=== PATIENT | male | born 1935 | race African-American/Black ===

== ENCOUNTER 2020-03-21 10:50 | Inpatient (IN) | payer MEDICARE ==
[2020-03-21] MEDS ORDERED: SODIUM CHLORIDE 0.9% 500 ML 500 ML IV ONE (11:02)
--- NOTE | 2020-03-21 11:14 | Emergency Department Report ---
- General Chief complaint: Weakness Stated complaint: YENNIFER PUI?: Yes Time Seen by Provider: 03/21/20 11:02 Source: patient, EMS Mode of arrival: Stretcher Limitations: Language Barrier - History of Present Illness Initial comments: This is an 84 yo male with hx of CVA, paroxysmal atrial fibrillation, diabetes mellitus, hypertension who presents with shortness of breath, diarrhea, generalized weakness. Patient was recently diagnosed with COVID-19 infection. He arrived via EMS. MD Complaint: generalized weakness -: Gradual, days(s) (Several days) Location: generalized Severity: moderate Consistency: constant Improves with: none Worsens with: none Context: recent illness (Recent COVID-19 positive test) - Related Data Home Medications Medication Instructions Recorded Confirmed Last Taken Metformin HCl [Glucophage] 850 mg PO BID 04/16/15 12/07/15 12/06/15 19:00 850 mg Sotalol HCl [Sotalol] 120 mg PO BID 04/16/15 12/07/15 12/06/15 120 mg Albuterol Mdi (or & Nicu Only) 2 puff INHALATION PRN PRN 12/07/15 12/07/15 12/06/15 [ProAir HFA Inhaler] 2 puffs Aspirin EC [Halfprin EC] 81 mg PO QDAY 12/07/15 12/07/15 12/06/15 81 mg Olmesartan/Hydrochlorothiazide 1 tab PO DAILY 12/07/15 12/07/15 12/06/15 [Benicar HCT 40-12.5 mg] 1 tab Previous Rx's Medication Instructions Recorded Last Taken Type AtorvaSTATin [Lipitor] 40 mg PO QHS #30 tablet 04/20/15 12/06/15 Rx 40 mg Dabigatran [Pradaxa] 150 mg PO BID #60 capsule 04/20/15 12/06/15 Rx 150 mg Famotidine [Pepcid] 40 mg PO DAILY #40 tablet 04/20/15 12/06/15 Rx 40 mg Losartan [Cozaar] 50 mg PO QDAY #30 tablet 04/20/15 12/06/15 Rx 50 mg amLODIPine 5 mg PO QDAY #30 tablet 04/20/15 12/06/15 Rx 5 mg Allergies Allergy/AdvReac Type Severity Reaction Status Date / Time No Known Allergies Allergy Verified 12/07/15 06:54 ED Review of Systems ROS: Stated complaint: YENNIFER Other details as noted in HPI Comment: All other systems reviewed and negative Constitutional: malaise Respiratory: cough, shortness of breath Gastrointestinal: diarrhea ED Past Medical Hx - Past Medical History Previous Medical History?: Yes Hx Hypertension: Yes Hx Diabetes: Yes (2007) Hx Arthritis: Yes Hx HIV: No - Social History Smoking Status: Former Smoker - Medications Home Medications: Home Medications Medication Instructions Recorded Confirmed Last Taken Type Metformin HCl [Glucophage] 850 mg PO BID 04/16/15 12/07/15 12/06/15 19:00 History 850 mg Sotalol HCl [Sotalol] 120 mg PO BID 04/16/15 12/07/15 12/06/15 History 120 mg AtorvaSTATin [Lipitor] 40 mg PO QHS #30 tablet 04/20/15 12/07/15 12/06/15 Rx 40 mg Dabigatran [Pradaxa] 150 mg PO BID #60 capsule 04/20/15 12/07/15 12/06/15 Rx 150 mg Famotidine [Pepcid] 40 mg PO DAILY #40 tablet 04/20/15 12/07/15 12/06/15 Rx 40 mg Losartan [Cozaar] 50 mg PO QDAY #30 tablet 04/20/15 12/07/15 12/06/15 Rx 50 mg amLODIPine 5 mg PO QDAY #30 tablet 04/20/15 12/07/15 12/06/15 Rx 5 mg Albuterol Mdi (or & Nicu Only) 2 puff INHALATION PRN PRN 12/07/15 12/07/15 12/06/15 History [ProAir HFA Inhaler] 2 puffs Aspirin EC [Halfprin EC] 81 mg PO QDAY 12/07/15 12/07/15 12/06/15 History 81 mg Olmesartan/Hydrochlorothiazide 1 tab PO DAILY 12/07/15 12/07/15 12/06/15 History [Benicar HCT 40-12.5 mg] 1 tab ED Physical Exam - General Limitations: Language Barrier General appearance: alert, in no apparent distress - Head Head exam: Present: atraumatic, normocephalic - Eye Eye exam: Present: normal appearance - ENT ENT exam: Present: mucous membranes moist - Neck Neck exam: Present: normal inspection, full ROM - Respiratory Respiratory exam: Present: normal lung sounds bilaterally. Absent: respiratory distress, wheezes, rales, rhonchi - Cardiovascular Cardiovascular Exam: Present: regular rate, tachycardia, normal heart sounds. Absent: systolic murmur, diastolic murmur, rubs, gallop - GI/Abdominal GI/Abdominal exam: Present: soft, normal bowel sounds. Absent: distended, tenderness, guarding, rebound - Rectal Rectal exam: Present: deferred - Extremities Exam Extremities exam: Present: normal inspection - Neurological Exam Neurological exam: Present: alert, oriented X3 - Psychiatric Psychiatric exam: Present: normal affect, normal mood - Skin Skin exam: Present: warm, dry, intact, normal color. Absent: rash ED Course Vital Signs 03/21/20 03/21/20 03/21/20 10:55 11:04 11:15 Temperature 98 F Pulse Rate 102 H 108 H Respiratory 22 18 20 Rate Blood Pressure 111/71 O2 Sat by Pulse 98 95 Oximetry 03/21/20 03/21/20 03/21/20 11:30 11:45 12:00 Temperature Pulse Rate 103 H 109 H 115 H Respiratory 23 22 22 Rate Blood Pressure 107/79 116/86 116/86 O2 Sat by Pulse 96 97 96 Oximetry 03/21/20 03/21/20 03/21/20 12:15 12:30 12:45 Temperature Pulse Rate 97 H 98 H 104 H Respiratory 22 21 25 H Rate Blood Pressure 122/73 122/82 120/79 O2 Sat by Pulse 96 96 96 Oximetry 03/21/20 03/21/20 03/21/20 13:00 13:30 14:00 Temperature Pulse Rate 106 H 101 H Respiratory 19 22 Rate Blood Pressure 113/79 122/83 106/66 O2 Sat by Pulse 97 96 94 Oximetry 03/21/20 14:31 Temperature Pulse Rate Respiratory Rate Blood Pressure 129/86 O2 Sat by Pulse 99 Oximetry ED Medical Decision Making - Lab Data Result diagrams: 03/21/20 11:59 03/21/20 11:59 - Radiology Data Radiology results: report reviewed, image reviewed - Medical Decision Making Mr. Jones presents with shortness of breath, diarrhea, malaise attributed to COVID 19 Hypovolemic hyponatremia due to diarrhea GI loss and thiazide diuretic use with need conservative hydration and supprotive care with multiple co--morbidities I personally reviewed chest radiograph. I suspect bibasilar pneumonia i nfiltrates evident at both lung bases. No hypoxia currently No respiratory distress. admitted to hospitalist service for further treatment Critical care attestation.: If time is entered above; I have spent that time in minutes in the direct care of this critically ill patient, excluding procedure time. ED Disposition Clinical Impression: COVID-19, Pneumonia due to COVID-19 virus, Dehydration, Acute hyponatremia Disposition: OP ADMIT IP TO THIS HOSP Is pt being admited?: Yes Does the pt Need Aspirin: No Condition: Stable
--- NOTE | 2020-03-21 11:44 | XRay Report ---
CHEST 1 VIEW 03/21/2020 11:09 AM INDICATION / CLINICAL INFORMATION: Weakness. COMPARISON: 04/16/2015 FINDINGS: SUPPORT DEVICES: None. HEART / MEDIASTINUM: No significant abnormality. LUNGS / PLEURA: There are mild bibasilar opacities. No pneumothorax. ADDITIONAL FINDINGS: No significant additional findings. IMPRESSION: 1. Given the low lung volumes, mild bibasilar opacities are most likely atelectatic in etiology. Signer Name: Graeme Cohen MD Signed: 03/21/2020 11:39 AM Workstation Name: [id number]
[2020-03-21 13:27] LABS: Alanine Aminotransferase 19 units/L (7-56); Albumin 3.3 g/dL (3.9-5); BUN/Creatinine Ratio 18; Blood Urea Nitrogen 18 mg/dL (9-20); Calcium 8.5 mg/dL (8.4-10.2); Hemolysis Index 32
[2020-03-21 13:43] LABS: Hematocrit 44.6 % (35.5-45.6); Mean Corpuscular HGB Conc 34 % (32-34); Mean Corpuscular Volume 88 fl (84-94); Platelet Count 219 K/mm3 (140-440); Red Blood Count 5.09 M/mm3 (3.65-5.03); Red Cell Distribution Width 13.3 % (13.2-15.2)
[2020-03-21 13:44] LABS: Basophils % (Auto) 0.5 % (0.0-1.8); Eosinophils % (Auto) 0.2 % (0.0-4.3); Lymphocytes # (Auto) 0.6 K/mm3 (1.2-5.4); Lymphocytes % (Auto) 11.5 % (13.4-35.0); Monocytes % (Auto) 10.3 % (0.0-7.3)
[2020-03-21 13:45] LABS: Monocytes # (Auto) 0.5 K/mm3 (0.0-0.8)
--- NOTE | 2020-03-21 22:41 | History and Physical Report ---
History of Present Illness Date of examination: 03/21/20 Date of admission: 03/21/20 15:22 Chief complaint: Shortness of breath for 1 day Diarrhea for 1 day Generalized weakness for 1 day History of present illness: 84-year-old male with history of hypertension cerebrovascular accident paroxysmal atrial fibrillation comes in for shortness of breath and diarrhea and generalized weakness. Patient symptoms are getting worse hence his visit to the emergency room. Patient was apparently diagnosed with coronavirus 19 infection recently. Details of which are not available. No fever no chills. Loose watery stools for 3 to 4 days. No body aches. - Past Medical History Previous Medical History?: Yes Hx Hypertension: Yes Hx Diabetes: Yes (2007) Hx Arthritis: Yes Hx HIV: No - Social History Smoking Status: Former Smoker - Medications Home Medications: Home Medications Medication Instructions Recorded Confirmed Last Taken Type Metformin HCl [Glucophage] 850 mg PO BID 04/16/15 12/07/15 12/06/15 19:00 History 850 mg Sotalol HCl [Sotalol] 120 mg PO BID 04/16/15 12/07/15 12/06/15 History 120 mg AtorvaSTATin [Lipitor] 40 mg PO QHS #30 tablet 04/20/15 12/07/15 12/06/15 Rx 40 mg Dabigatran [Pradaxa] 150 mg PO BID #60 capsule 04/20/15 12/07/15 12/06/15 Rx 150 mg Famotidine [Pepcid] 40 mg PO DAILY #40 tablet 04/20/15 12/07/15 12/06/15 Rx 40 mg Losartan [Cozaar] 50 mg PO QDAY #30 tablet 04/20/15 12/07/15 12/06/15 Rx 50 mg amLODIPine 5 mg PO QDAY #30 tablet 04/20/15 12/07/15 12/06/15 Rx 5 mg Albuterol Mdi (or & Nicu Only) 2 puff INHALATION PRN PRN 12/07/15 12/07/1512/05 History [ProAir HFA Inhaler] 2 puffs Aspirin EC [Halfprin EC] 81 mg PO QDAY 12/07/15 12/07/15 12/06/15 History 81 mg Olmesartan/Hydrochlorothiazide 1 tab PO DAILY 12/07/15 12/07/15 12/06/15 History [Benicar HCT 40-12.5 mg] 1 tab Review of Systems ROS: Constitutional no weight loss or weight gain no fever or chills HEENT no sore throat no post nasal drip no diplopia Neck no neck stiffness no lymph gland enlargement Chest and lungs shortness of breath present CVS no chest pain no diaphoresis no palpitations GI diarrhea present Genitourinary system no dysuria no flank pain Musculoskeletal system no muscle pains no joint pains 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 Skin no rash no itching Psychiatric no depression no homicidal or suicidal tendencies Hematologic no lymphedema or bruising Endocrine no polydipsia no polyuria no cold intolerance no heat intolerance Medications and Allergies Allergies Allergy/AdvReac Type Severity Reaction Status Date / Time No Known Allergies Allergy Verified 12/07/15 06:54 Home Medications Medication Instructions Recorded Confirmed Last Taken Type Metformin HCl [Glucophage] 750 mg PO BID 04/16/15 03/21/20 03/20/20 History AtorvaSTATin [Lipitor] 40 mg PO QHS #30 tablet 04/20/15 03/21/20 03/20/20 Rx Dabigatran [Pradaxa] 150 mg PO BID #60 capsule 04/20/15 03/21/20 03/21/20 Rx Olmesartan/Hydrochlorothiazide 1 tab PO DAILY 12/07/15 03/21/20 03/21/20 History [Benicar HCT 40-12.5 mg] Famotidine [Pepcid] 40 mg PO HS 03/21/20 03/21/20 03/20/20 History Finasteride [Proscar] 5 mg PO QHS 03/21/20 03/21/20 03/20/20 History Glimepiride [Amaryl] 2 mg PO QAM 03/21/20 03/21/20 03/21/20 History Metoprolol Succinate [Toprol Xl] 100 mg PO QHS 03/21/20 03/21/20 03/20/20 History Sitagliptin Phosphate [Januvia] 25 mg PO QAM 03/21/20 03/21/20 03/21/20 History Tamsulosin [Flomax] 0.4 mg PO DAILY 03/21/20 03/21/20 03/20/20 History Exam - Constitutional Vitals: Temp Pulse Resp BP Pulse Ox 98.7 F 91 H 18 136/95 96 03/21/20 17:30 03/21/20 17:30 03/21/20 17:30 03/21/20 17:30 03/21/20 17:30 General appearance: Present: mild distress, well-nourished - EENT Eyes: Present: PERRL ENT: hearing intact, clear oral mucosa - Neck Neck: Present: supple, normal ROM - Respiratory Respiratory effort: normal Respiratory: bilateral: CTA, rhonchi (Scattered) - Cardiovascular Heart rate: 108 Rhythm: regular Heart Sounds: Present: S1 & S2. Absent: rub, click - Extremities Extremities: pulses symmetrical, No edema Peripheral Pulses: within normal limits - Abdominal General gastrointestinal: Present: soft, non-tender, non-distended, normal bowel sounds Male genitourinary: Present: normal - Integumentary Integumentary: Present: clear, warm, dry - Musculoskeletal Musculoskeletal: gait normal, strength equal bilaterally - Psychiatric Psychiatric: appropriate mood/affect, intact judgment & insight - Neurologic Neurologic: CNII-XII intact, moves all extremities - Allied Health Allied health notes reviewed: nursing, case management HEART Score - HEART Score Troponin: Troponin T < 0.010 ng/mL (0.00-0.029) 03/21/20 11:59 Results - Labs CBC & Chem 7: 03/22/20 03:53 03/22/20 03:53 Labs: Laboratory Last Values WBC 5.2 K/mm3 (4.5-11.0) 03/21/20 11:59 RBC 5.09 M/mm3 (3.65-5.03) H 03/21/20 11:59 Hgb 15.0 gm/dl (11.8-15.2) 03/21/20 11:59 Hct 44.6 % (35.5-45.6) 03/21/20 11:59 MCV 88 fl (84-94) 03/21/20 11:59 MCH 30 pg (28-32) 03/21/20 11:59 MCHC 34 % (32-34) 03/21/20 11:59 RDW 13.3 % (13.2-15.2) 03/21/20 11:59 Plt Count 219 K/mm3 (140-440) 03/21/20 11:59 Lymph % (Auto) 11.5 % (13.4-35.0) L 03/21/20 11:59 [place] % (Auto) 10.3 % (0.0-7.3) H 03/21/20 11:59 Eos % (Auto) 0.2 % (0.0-4.3) 03/21/20 11:59 Baso % (Auto) 0.5 % (0.0-1.8) 03/21/20 11:59 Lymph # 0.6 K/mm3 (1.2-5.4) L 03/21/20 11:59 [place] # 0.5 K/mm3 (0.0-0.8) 03/21/20 11:59 Eos # 0.0 K/mm3 (0.0-0.4) 03/21/20 11:59 Baso # 0.0 K/mm3 (0.0-0.1) 03/21/20 11:59 Seg Neutrophils % 77.5 % (40.0-70.0) H 03/21/20 11:59 Seg Neutrophils # 4.0 K/mm3 (1.8-7.7) 03/21/20 11:59 D-Dimer 212.99 ng/mlDDU (0-234) 03/21/20 11:59 Sodium 128 mmol/L (137-145) L 03/21/20 11:59 Potassium 4.1 mmol/L (3.6-5.0) 03/21/20 11:59 Chloride 90.5 mmol/L (98-107) L 03/21/20 11:59 Carbon Dioxide 24 mmol/L (22-30) 03/21/20 11:59 Anion Gap 18 mmol/L 03/21/20 11:59 BUN 18 mg/dL (9-20) 03/21/20 11:59 Creatinine 1.0 mg/dL (0.8-1.3) 03/21/20 11:59 Estimated GFR > 60 ml/min 03/21/20 11:59 BUN/Creatinine Ratio 18 % 03/21/20 11:59 Glucose 204 mg/dL (75-100) H 03/21/20 11:59 Calcium 8.5 mg/dL (8.4-10.2) 03/21/20 11:59 Total Bilirubin 0.70 mg/dL (0.1-1.2) 03/21/20 11:59 AST 32 units/L (5-40) 03/21/20 11:59 ALT 19 units/L (7-56) 03/21/20 11:59 Alkaline Phosphatase 39 units/L (35-129) 03/21/20 11:59 Lactate Dehydrogenase 377 units/L (91-180) H 03/21/20 11:59 Troponin T < 0.010 ng/mL (0.00-0.029) 03/21/20 11:59 C-Reactive Protein 4.20 mg/dL (0.00-1.30) H 03/21/20 11:59 Total Protein 6.9 g/dL (6.3-8.2) 03/21/20 11:59 Albumin 3.3 g/dL (3.9-5) L 03/21/20 11:59 Albumin/Globulin Ratio 0.9 % 03/21/20 11:59 Procalcitonin < 0.05 ng/mL (<0.15) 03/21/20 11:59 Short CBC 03/21/20 03/22/20 Range/Units 11:59 03:53 WBC 5.2 5.3 (4.5-11.0) K/mm3 Hgb 15.0 15.2 (11.8-15.2) gm/dl Hct 44.6 44.4 (35.5-45.6) % Plt Count 219 230 (140-440) K/mm3 BMP 03/21/20 03/22/20 11:59 03:53 Sodium 128 L 128 L Potassium 4.1 4.7 Chloride 90.5 L 90.3 L Carbon Dioxide 24 25 BUN 18 15 Creatinine 1.0 1.0 Glucose 204 H 242 H Calcium 8.5 8.5 Cardiac Enzymes 03/21/20 Range/Units 11:59 Troponin T < 0.010 (0.00-0.029) ng/mL Liver Function 03/21/20 03/22/20 Range/Units 11:59 03:53 Total Bilirubin 0.70 0.80 (0.1-1.2) mg/dL AST 32 26 (5-40) units/L ALT 19 19 (7-56) units/L Alkaline Phosphatase 39 43 (35-129) units/L Albumin 3.3 L 3.3 L (3.9-5) g/dL - Imaging and Cardiology Chest x-ray: report reviewed Imaging and Cardiology: Chest x-ray Given the low lung volumes mild bibasilar opacities are most likely atelectatic etiology [place]/IV: IV Catheter Type [Right Hand] INT / Saline Lock Assessment and Plan Advance Directives: Yes (Full code) VTE prophylaxis?: Chemical Plan of care discussed with patient/family: Yes - Patient Problems (1) Acute hyponatremia Current Visit: Yes Status: Acute Plan to address problem: IV normal saline for now Can be secondary to hydrochlorothiazide We will discontinue hydrochlorothiazide (2) Person under investigation for COVID-19 Current Visit: Yes Status: Acute Plan to address problem: Coronavirus test ordered inflammatory markers are moderately high (3) T2DM (type 2 diabetes mellitus) Current Visit: Yes Status: Chronic Qualifiers: Diabetes mellitus skilled nursing insulin use: without local company intermodal truck driver use Plan to address problem: Continue Metformin and coverage for now Check hemoglobin A1c (4) Dyslipidemia Current Visit: No Status: Chronic Plan to address problem: Continue statins (5) HTN (hypertension) Onset Date: 04/16/15 Current Visit: No Status: Chronic Qualifiers: Hypertension type: essential hypertension Qualified Code(s): I10 - Essent ial (primary) hypertension Plan to address problem: Continue antihypertensives (6) Atrial fibrillation Current Visit: No Status: Chronic Qualifiers: Atrial fibrillation type: paroxysmal Qualified Code(s): I48.0 - Paroxysmal atrial fibrillation Plan to address problem: Continue Pradaxa (7) DVT prophylaxis Current Visit: Yes Status: Acute Plan to address problem: Patient on Pradaxa and GI prophylaxis no need for heparin D-dimers not not elevated
[2020-03-21] MEDS ORDERED: oxyCODONE /ACETAMINOPHEN 5-325MG TAB PO PRN (22:42)
[2020-03-21] MEDS ORDERED: HYDROmorphone 1 MG/1 ML INJ IV PRN (22:42)
[2020-03-21] MEDS ORDERED: ACETAMINOPHEN 325 MG TAB PO PRN (22:42)
[2020-03-21] MEDS ORDERED: ONDANSETRON 4 MG/2 ML INJ IV PRN (22:42)
[2020-03-21] MEDS ORDERED: dexAMETHasone 4 MG/ML VIAL IV SCH (23:00)
[2020-03-21] MEDS: SODIUM CHLORIDE 0.9% 1000 ML 1,000 ML IV SCH (23:55)
[2020-03-21] MEDS: FAMOTIDINE 20 MG/2 ML INJ IV SCH (23:55)
[2020-03-22] MEDS: DABIGATRAN 150 MG CAP PO SCH ×3 (00:46→22:15)
[2020-03-22 04:37] LABS: Basophils % (Auto) 0.2 % (0.0-1.8); Eosinophils % (Auto) 0.1 % (0.0-4.3); Hematocrit 44.4 % (35.5-45.6); Hemoglobin 15.2 gm/dl (11.8-15.2); Lymphocytes # (Auto) 0.4 K/mm3 (1.2-5.4); Lymphocytes % (Auto) 6.7 % (13.4-35.0); Mean Corpuscular HGB Conc 34 % (32-34); Mean Corpuscular Volume 88 fl (84-94); Monocytes # (Auto) 0.3 K/mm3 (0.0-0.8); Monocytes % (Auto) 4.8 % (0.0-7.3); Platelet Count 230 K/mm3 (140-440); Red Blood Count 5.04 M/mm3 (3.65-5.03); Red Cell Distribution Width 13.6 % (13.2-15.2)
[2020-03-22 04:49] LABS: Alanine Aminotransferase 19 units/L (7-56); Albumin 3.3 g/dL (3.9-5); BUN/Creatinine Ratio 15; Blood Urea Nitrogen 15 mg/dL (9-20); Calcium 8.5 mg/dL (8.4-10.2); Hemolysis Index 10
[2020-03-22] MEDS: LOSARTAN 50 MG TAB PO SCH (09:17)
[2020-03-22] MEDS: GLIMEPIRIDE 2 MG TAB PO SCH (09:18)
[2020-03-22] MEDS: TAMSULOSIN 0.4 MG CAP PO SCH (09:18)
[2020-03-22] MEDS: hydroCHLOROthiazide 12.5 MG CAP PO SCH (09:18)
[2020-03-22] MEDS: FAMOTIDINE 20 MG/2 ML INJ IV SCH (09:18)
[2020-03-22] MEDS: LINAGLIPTIN 5 MG TAB PO SCH (09:18)
[2020-03-22] MEDS: INSULIN LISPRO 100 UNIT/ML VIAL 3 mL SUB-Q SCH ×4 (09:26→23:14)
[2020-03-22] MEDS ORDERED: HYDROCHLOROTHIAZIDE PO SCH (10:00)
[2020-03-22] MEDS ORDERED: OLMESARTAN PO SCH (10:00)
[2020-03-22] MEDS ORDERED: SITAGLIPTIN PHOSPHATE 25 MG PO SCH (10:00)
[2020-03-22] MEDS: DEXAMETHASONE 4 MG TAB PO SCH (13:26)
[2020-03-22] MEDS: SODIUM CHLORIDE 0.9% 1000 ML 1,000 ML IV SCH (17:28)
--- NOTE | 2020-03-22 18:52 | Progress Note ---
Assessment and Plan - Patient Problems (1) Acute hyponatremia Current Visit: Yes Status: Acute Plan to address problem: Could be secondary to hydrochlorothiazide this is been discontinued. Replace normal saline and follow-up electrolytes. (2) COVID-19 Current Visit: Yes Status: Acute Plan to address problem: Patient COVID-19 infection has diarrhea. Patient does have slightly elevated inflammatory markers. Appears to be improving. May not be a candidate for convalescent plasma at this time. Does show evidence of improvement. Will follow markers inflammatory markers. (3) Dehydration Current Visit: Yes Status: Acute Plan to address problem: Secondary to diarrhea (4) Pneumonia due to COVID-19 virus Current Visit: Yes Status: Acute (5) T2DM (type 2 diabetes mellitus) Current Visit: Yes Status: Chronic Qualifiers: Diabetes mellitus termination clerk insulin use: without care home use Plan to address problem: Restarted back on Tradjenta and Amaryl. Accu-Cheks at present suboptimal control patient just got here. Will start patient back on p.o. medications c over with sliding scale insulin only for now and titrate accordingly. (6) Atrial fibrillation Current Visit: No Status: Chronic Qualifiers: Atrial fibrillation type: paroxysmal Qualified Code(s): I48.0 - Paroxysmal atrial fibrillation Plan to address problem: At present rate very well controlled now. On Pradaxa. (7) HTN (hypertension) Onset Date: 04/16/15 Current Visit: No Status: Chronic Qualifiers: Hypertension type: essential hypertension Qualified Code(s): I10 - Essential (primary) hypertension Plan to address problem: Patient continues to have well controlled on current antihypertensive medications. Subjective Date of service: 03/22/20 Principal diagnosis: Pneumonia sepsis Interval history: Patient was up walking today. Saturations went to 94%. On 2 L. Patient gives no new concerns today. Up walking around making full sentences with daughter on the phone. No hypoxemia at this time. Patient states he is not received his blood sugar medications. Patient of person of interest for covid positivity. Patient labs became positive for COVID-19 infection today. Objective - Constitutional Vitals: Vital Signs - 12hr 03/22/20 03/22/20 11:48 16:02 Temperature 97.5 F L 98.6 F Pulse Rate 73 81 Respiratory 19 19 Rate Blood Pressure 124/72 139/86 O2 Sat by Pulse 94 94 Oximetry General appearance: Present: no acute distress, well-nourished - EENT Eyes: PERRL, EOM intact ENT: hearing intact, clear oral mucosa Ears: bilateral: normal - Neck Neck: supple, normal ROM - Respiratory Respiratory effort: normal Respiratory: bilateral: CTA - Breasts Breasts: normal - Cardiovascular Rhythm: regular Heart Sounds: Present: S1 & S2. Absent: gallop, rub Extremities: pulses intact, No edema, normal color, Full ROM - Gastrointestinal General gastrointestinal: Present: soft, non-tender, non-distended, normal bowel sounds - Genitourinary Male genitourinary: normal - Integumentary Integumentary: clear, warm, dry - Musculoskeletal Musculoskeletal: 1, strength equal bilaterally - Neurologic Neurologic: moves all extremities - Psychiatric Psychiatric: memory intact, appropriate mood/affect, intact judgment & insight - Labs CBC & Chem 7: 03/22/20 03:53 03/22/20 03:53 Labs: Abnormal lab results 03/21/20 03/21/20 03/22/20 Range/Units 11:59 Unknown 03:53 RBC (3.65-5.03) M/mm3 Lymph % (Auto) (13.4-35.0) % Lymph # (1.2-5.4) K/mm3 Seg Neutrophils % (40.0-70.0) % Sodium (137-145) mmol/L Chloride (98-107) mmol/L Glucose (75-100) mg/dL POC Glucose (70-105) Hemoglobin A1c 8.7 H (4-6) % Ferritin 684.2 H (30.0-300.0) ng/mL Albumin (3.9-5) g/dL Coronavirus (PCR) Positive A (Negative) 03/22/20 03/22/20 03/22/20 Range/Units 03:53 03:53 11:28 RBC 5.04 H (3.65-5.03) M/mm3 Lymph % (Auto) 6.7 L (13.4-35.0) % Lymph # 0.4 L (1.2-5.4) K/mm3 Seg Neutrophils % 88.2 H (40.0-70.0) % Sodium 128 L (137-145) mmol/L Chloride 90.3 L (98-107) mmol/L Glucose 242 H (75-100) mg/dL POC Glucose 294 H (70-105) Hemoglobin A1c (4-6) % Ferritin (30.0-300.0) ng/mL Albumin 3.3 L (3.9-5) g/dL Coronavirus (PCR) (Negative) - Imaging and cardiology Chest x-ray: report reviewed, image reviewed HEART Score - HEART Score Troponin: Troponin T < 0.010 ng/mL (0.00-0.029) 03/21/20 11:59
[2020-03-22] MEDS ORDERED: NON-FORMULARY EACH (Famotidine [Pepcid] 40 MG) PO SCH (22:00)
[2020-03-22] MEDS: FAMOTIDINE 20 MG TAB PO SCH (22:15)
[2020-03-22] MEDS: METOPROLOL SUCCINATE XL 100 MG TAB PO SCH (22:15)
[2020-03-22] MEDS: FINASTERIDE 5 MG TAB PO SCH (22:16)
[2020-03-23] MEDS: INSULIN LISPRO 100 UNIT/ML VIAL 3 mL SUB-Q SCH ×4 (09:21→22:28)
[2020-03-23] MEDS: LINAGLIPTIN 5 MG TAB PO SCH (09:24)
[2020-03-23] MEDS: FAMOTIDINE 20 MG TAB PO SCH ×2 (09:25→22:14)
[2020-03-23] MEDS: GLIMEPIRIDE 2 MG TAB PO SCH (09:25)
[2020-03-23] MEDS: hydroCHLOROthiazide 12.5 MG CAP PO SCH (09:30)
[2020-03-23] MEDS: DEXAMETHASONE 4 MG TAB PO SCH (09:30)
[2020-03-23] MEDS: DABIGATRAN 150 MG CAP PO SCH ×2 (09:32→22:13)
[2020-03-23] MEDS: LOSARTAN 50 MG TAB PO SCH (09:32)
[2020-03-23] MEDS: TAMSULOSIN 0.4 MG CAP PO SCH (09:50)
[2020-03-23] MEDS: SODIUM CHLORIDE 0.9% 1000 ML 1,000 ML IV SCH ×2 (14:37→22:15)
--- NOTE | 2020-03-23 14:54 | Progress Note ---
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 states he feels better. Patient main problem today is constipation. Patient denies any fever chills no nausea vomiting no pain. Breathing well. Without O2. Objective - Constitutional Vitals: Vital Signs - 12hr 03/23/20 03/23/20 03/23/20 04:51 08:20 09:32 Temperature 98.3 F Pulse Rate 83 90 Respiratory 20 Rate Blood Pressure 134/83 116/72 O2 Sat by Pulse 97 95 Oximetry 03/23/20 11:32 Temperature 97.6 F Pulse Rate 77 Respiratory 18 Rate Blood Pressure 123/81 O2 Sat by Pulse 96 Oximetry General appearance: Present: no acute distress, well-nourished - EENT Eyes: PERRL, EOM intact ENT: hearing intact, clear oral mucosa Ears: bilateral: normal - Neck Neck: supple, normal ROM - Respiratory Respiratory effort: normal Respiratory: bilateral: CTA - Breasts Breasts: normal - Cardiovascular Rhythm: regular Heart Sounds: Present: S1 & S2. Absent: gallop, rub Extremities: pulses intact, No edema, normal color, Full ROM - Gastrointestinal General gastrointestinal: Present: soft, non-tender, non-distended, normal bowel sounds - Genitourinary Male genitourinary: normal - Integumentary Integumentary: clear, warm, dry - Musculoskeletal Musculoskeletal: 1, strength equal bilaterally - Neurologic Neurologic: moves all extremities - Psychiatric Psychiatric: memory intact, appropriate mood/affect, intact judgment & insight - Labs CBC & Chem 7: 08/04/20 03:53 03/22/20 03:53 Labs: Abnormal lab results 03/22/20 03/23/20 Range/Units 22:00 09:18 POC Glucose 279 H 269 H (70-105) HEART Score - HEART Score Troponin: Troponin T < 0.010 ng/mL (0.00-0.029) 03/21/20 11:59
[2020-03-23] MEDS ORDERED: ALBUTEROL 8.5 GM MDI INHALATION IH PRN (15:00)
[2020-03-23] MEDS ORDERED: MAGNESIUM HYDROXIDE (MOM) ORAL LIQD UDC PO PRN (15:00)
[2020-03-23 15:50] LABS: Albumin 3.6 g/dL (3.9-5); Calcium 8.9 mg/dL (8.4-10.2)
[2020-03-23] MEDS: FINASTERIDE 5 MG TAB PO SCH (22:13)
[2020-03-23] MEDS: METOPROLOL SUCCINATE XL 100 MG TAB PO SCH (22:14)
[2020-03-24] MEDS: GLIMEPIRIDE 2 MG TAB PO SCH (08:24)
[2020-03-24] MEDS: INSULIN LISPRO 100 UNIT/ML VIAL 3 mL SUB-Q SCH ×2 (08:48→12:32)
[2020-03-24] MEDS: LINAGLIPTIN 5 MG TAB PO SCH (10:26)
[2020-03-24] MEDS: FAMOTIDINE 20 MG TAB PO SCH (10:26)
[2020-03-24] MEDS: DABIGATRAN 150 MG CAP PO SCH (10:27)
[2020-03-24] MEDS: LOSARTAN 50 MG TAB PO SCH (10:31)
[2020-03-24] MEDS: hydroCHLOROthiazide 12.5 MG CAP PO SCH (10:32)
[2020-03-24] MEDS: TAMSULOSIN 0.4 MG CAP PO SCH (10:32)
--- NOTE | 2020-03-24 10:58 | Discharge Summary ---
Providers - Providers Date of Admission: 03/21/20 15:22 Date of discharge: 03/24/20 Attending physician: RITESH HERCULES Primary care physician: [employer]N Hospitalization Condition: Stable Hospital course: Patient 84-year-old male presented with hypoxemia shortness of breath found to have COVID-19 pneumonia. Patient was admitted placed on empiric antibiotics initially. Placed on dexamethasone did well. Patient did not require any further treatment. Patient O2 sats remained stable. Patient was comfortable. Patient hospital course complicated by uncontrolled blood sugar and hyponatremia. Patient's sodium was 120 and was corrected with normal saline. Patient stable to be discharged home. Patient blood sugar was also uncontrolled however patient did not receive medications when patient's oral hypoglycemics was started patient's blood glucose stabilized. Disposition: - TO HOME OR SELFCARE - Discharge Diagnoses (1) Acute hyponatremia Status: Acute Comment: Resolved after intravenous normal saline. (2) COVID-19 Status: Acute Comment: Over the positive patient with self isolate for total of 14 days. Continue dexamethasone for 10 days. Complete 10 days (3) Dehydration Status: Acute Comment: Resolved. (4) Pneumonia due to COVID-19 virus Status: Acute (5) T2DM (type 2 diabetes mellitus) Status: Chronic Qualifiers: Diabetes mellitus long-term insulin use: without meterman use Comment: Much improved after restarting oral hypoglycemics. (6) Atrial fibrillation Status: Chronic Qualifiers: Atrial fibrillation type: paroxysmal Qualified Code(s): I48.0 - Paroxysmal atrial fibrillation Comment: Patient to continue Pradaxa (7) HTN (hypertension) Status: Chronic Qualifiers: Hypertension type: essential hypertension Qualified Code(s): I10 - Essential (primary) hypertension Core Measure Documentation - Palliative Care Palliative Care/ Comfort Measures: Not Applicable - Core Measures Any of the following diagnoses?: none Exam - Constitutional Vitals: Temp Pulse Resp BP Pulse Ox 97.7 F 76 18 140/93 95 03/24/20 05:40 03/24/20 10:31 03/24/20 05:40 03/24/20 10:31 03/24/20 05:40 General appearance: Present: no acute distress, well-nourished - EENT Eyes: Present: PERRL ENT: hearing intact, clear oral mucosa - Neck Neck: Present: supple, normal ROM - Respiratory Respiratory effort: normal Respiratory: bilateral: CTA - Cardiovascular Heart Sounds: Present: S1 & S2. Absent: rub, click - Extremities Extremities: pulses symmetrical, No edema Peripheral Pulses: within normal limits - Abdominal General gastrointestinal: Present: soft, non-tender, non-distended, normal bowel sounds Male genitourinary: Present: normal - Integumentary Integumentary: Present: clear, warm, dry - Musculoskeletal Musculoskeletal: gait normal, strength equal bilaterally - Psychiatric Psychiatric: appropriate mood/affect, intact judgment & insight - Neurologic Neurologic: CNII-XII intact, moves all extremities Plan Activity: no restrictions Diet: diabetic Follow up with: PRIMARY CARE,MD [Primary Care Provider] - 3-5 Days Prescriptions: dexAMETHasone [Decadron] 6 mg PO DAILY #7 tablet Albuterol Mdi (or & Nicu Only) [ProAir HFA Inhaler] 2 puff IH Q6HRT PRN #1 inha PRN Reason: Shortness Of Breath
[2020-03-24 12:10] LABS: Calcium 8.5 mg/dL (8.4-10.2)
[2020-03-24 12:12] LABS: Alanine Aminotransferase 33 units/L (7-56); Albumin 3.3 g/dL (3.9-5); BUN/Creatinine Ratio 25; Blood Urea Nitrogen 28 mg/dL (9-20); Calcium 8.4 mg/dL (8.4-10.2); Hemolysis Index 37
[2020-03-24 15:11] VITALS: BP 150/86
== END 2020-03-24 15:11 | disposition home or self-care (01) | DRG 177 ==
LOC: ED 10:50 → 3A 15:22 → OBSVTOIN 15:22 → 3A 16:15
PROVIDERS: ADMIT Internal Medicine; ATTEND Internal Medicine
DX: U07.1 COVID-19 (principal); J12.89 Other viral pneumonia; E87.1 Hypo-osmolality and hyponatremia; E86.0 Dehydration; I48.0 Paroxysmal atrial fibrillation; E11.9 Type 2 diabetes mellitus without complications; I10 Essential (primary) hypertension; M19.90 Unspecified osteoarthritis, unspecified site; E78.5 Hyperlipidemia, unspecified; Z86.73 Personal history of transient ischemic attack (TIA), and cerebral infarction without residual deficits; Z87.891 Personal history of nicotine dependence
CPT/HCPCS: 36415; 71045; 80048; 80053; 82728; 82962; 83036; 83615; 84145; 84484; 85025; 85379; 86140; 93005; G0378; A9270-GY; J1100; J7030; J7040; J8540; U0003-CS